=== PATIENT | female | born 1950 | race African-American/Black ===

== ENCOUNTER 2025-05-17 13:49 | Emergency (ER) | payer OTHER ==
[~2025-05-17] VITALS: Ht 167.6 cm; Wt 73.0 kg
[2025-05-17 13:51] VITALS: O2SAT 100
[2025-05-17 15:25] LABS: BASOPHILS % 0.5 % (0.0-2.0); EOSINOPHILS % 0.2 % (0.0-5.0); HEMATOCRIT. 35.9 % (36.0-48.0); HEMOGLOBIN. 12.0 g/dL (12.0-16.0); LYMPHOCYTES % 15.6 % (20.0-50.0); MEAN PLATELET VOLUME 8.4 fl (7.4-10.4); MONOCYTES % 6.5 % (2.0-8.0); NEUTROPHILS % 77.2 % (40.0-76.0); PLATELET 277 x1000/uL (130-400); RED BLOOD CELL COUNT 3.84 mill/uL (4.2-5.4); RED CELL DISTRIBUTION WIDTH 12.5 % (11.6-14.6)
[2025-05-17 15:26] LABS: CREATININE 0.7 mg/dL (0.6-1.0); UREA NITROGEN BLOOD 15 mg/dL (9-23)
[2025-05-17 16:24] LABS: CLARITY URINE CLOUDY (CLEAR); COLOR URINE DARK YELLOW (YELLOW); GLUCOSE URINE NEGATIVE (NEGATIVE); KETONES URINE 3+ (NEGATIVE); LEUKOCYTE ESTERASE URINE 1+ (NEGATIVE); NITRITE URINE POSITIVE (NEGATIVE); OCCULT BLOOD URINE 1+ (NEGATIVE); PH URINE 5.5 (4.5-8.0); PROTEIN URINE 1+ (NEGATIVE); SPECIFIC GRAVITY URINE 1.030 (1.005-1.030); UROBILINOGEN URINE 1.0 E.U./dL (0.2-1.0)
[2025-05-17 16:38] LABS: RBC URINE NONE SEEN /hpf (0-2)
[2025-05-17 16:39] LABS: BACTERIA URINE 3+; SQUAMOUS EPITHELIAL CELL URINE FEW /lpf (RARE/1+)
[2025-05-17] MEDS: LEVOFLOXACIN 500MG PREMIX 100 ML IV NR (17:25)
[2025-05-17 18:59] VITALS: BP 118/61; PULSE 69; RESP 14; TEMP 36.7; O2SAT 98
== END 2025-05-17 19:27 | disposition short-term general hospital (02) ==
LOC: EDBD 13:49 → ER 14:11 → CANBEDREQ 16:58 → ER 19:27
DX: N39.0 Urinary tract infection, site not specified (principal); R55 Syncope and collapse; I10 Essential (primary) hypertension; E11.9 Type 2 diabetes mellitus without complications; E78.00 Pure hypercholesterolemia, unspecified; Z98.890 Other specified postprocedural states
CPT/HCPCS: 99285; 96374; 71045; 80048; 81003; 85025; 36415; 93005; J1956